=== PATIENT | female | born 1940 | race Caucasian/White ===

== ENCOUNTER 2018-08-19 06:14 | Emergency (ER) | payer OTHER ==
[2018-08-19] MEDS ORDERED: MECLIZINE HCL 12.5 MG TAB ONE (07:03)
--- NOTE | 2018-08-19 07:10 | RAD REPORT ---
EXAM DESCRIPTION: CT - Head Brain Wo Cont - 08/19/2018 7:03 am CLINICAL HISTORY: Headache, dizziness COMPARISON: CT head October 2016 TECHNIQUE: Axial 5 mm thick images of the head were obtained without IV contrast. All CT scans are performed using dose optimization technique as appropriate and may include automated exposure control or mA/KV adjustment according to patient size. FINDINGS: No intracranial hemorrhage, mass, edema or shift of mid-line structures. No acute infarcti on changes seen. [id number] atrophy and moderate chronic ischemic changes are present. Ventricl es are in proportion to volume loss. Intracranial contents are similar to the 2017 study. Mastoid air cells and visualized portions of the paranasal sinuses are clear. No acute bony findings. IMPRESSION: Atrophy and chronic ischemic changes are present similar to 2017. No mass, edema or other acute intracranial finding.
[2018-08-19 07:49] LABS: Absolute Lymphocytes (CBC) 1.2 K/uL (0.7-4.9); Absolute Monocytes 0.4 K/uL (0.1-1.3); Absolute Neutrophil 4.8 K/uL (1.8-8.0); Basophils % 0.4 % (0-1.3); Eosinophils % 2.5 % (0-4.4); Hematocrit 41.7 % (36.0-45.0); Lymphocytes % 18.7 % (15.3-44.8); MPV 8.7 fL (7.6-11.3); Monocytes % 6.4 % (3.3-12.3); RBC Red Blood Cell Count 4.66 M/uL (3.86-4.86)
[2018-08-19 08:01] LABS: BUN Blood Urea Nitrogen 24 mg/dL (7-18); Bicarbonate 28 mmol/L (21-32); Glucose Level 86 mg/dL (74-106); Potassium 3.8 mmol/L (3.5-5.1); Sodium Level 141 mmol/L (136-145)
--- NOTE | 2018-08-19 08:37 | RAD REPORT ---
EXAM DESCRIPTION: CT - Neck Angio - 08/19/2018 8:23 am CLINICAL HISTORY: Dizziness, nausea, headache TECHNIQUE: During dynamic enhancement using nonionic IV contrast, axial 2 mm thick images of the nec k were obtained. Sagittal and axial reconstruction images were generated using maximum intensity proj ection protocol and reviewed. All CT scans are performed using dose optimization technique as appropriate and may include automated exposure control or mA/KV adjustment according to patient size. FINDINGS: No aneurysm or vascular malformation identified. No carotid or vertebral dissection. Aortic arch is 3 vessel configuration. There is significant tortuosity of the proximal portions of th e great vessels and vertebral arteries. No origin stenosis seen. Visualized portions of each subclavi an artery without focal abnormality. No stenosis, vasculitis or other significant carotid artery find ing. Arterial calcifications are present. These are most pronounced in the cavernous portion of each internal carotid artery. These are further detailed on CT angio head examination. Vertebral body height is normal. There is reversal of the usual cervical lordosis at C5 where there i s also a slight retrolisthesis of C5 relative to C4 and C6. Prominent C5-6 and C6-7 disc space narrow ing present. Prominent facet joint degenerative changes are present. Mild right foraminal stenosis at C3-4 and C4-5. Moderate right-side and advanced left-sided foraminal stenosis at C5-6 and bilateral significant stenosis at C6-7. IMPRESSION: Atherosclerotic calcifications are present but no dissection, stenosis or acute vascula r abnormality. Advanced cervical spine degenerative change with significant foraminal stenosis at C5-6 and C6-7.
[2018-08-19] MEDS ORDERED: NA CHLORIDE 0.9% 500 ML ONE (08:38)
--- NOTE | 2018-08-19 08:39 | RAD REPORT ---
EXAM DESCRIPTION: CT - Head angio - 08/19/2018 8:24 am TECHNIQUE: During dynamic enhancement using nonionic IV contrast, axial 1 millimeter thick images of the head were obtained. Sagittal and axial reconstruction images were generated using maximum intens ity projection protocol and reviewed. All CT scans are performed using dose optimization technique as appropriate and may include automated exposure control or mA/KV adjustment according to patient size. FINDINGS: No aneurysm or vascular malformation identified. Major venous sinuses are patent. No significant stenosis, named branch occlusion, vasculitis or other significant vascular finding vaibhav ntifiable. Significant calcifications are seen in the cavernous portions of each internal carotid ar aftab without significant luminal narrowing. Anterior communicating artery is present. IMPRESSION: Negative CT angio head examination for acute or significant finding.
--- NOTE | 2018-08-19 08:50 | EDPHYS ---
Physician Documentation [facility] Name: Allyn Ramsey Age: 78 yrs Sex: Female : 1940 Arrival Date: 08/19/2018 Time: 06:25 Bed 5 Private MD: RUTH Physician Gus Huang HPI: 08/19 07:02 This 78 yrs old Female presents to ER via Ambulatory with complaints of kb Dizziness, Nausea. 07:02 The patient presents with dizziness. Onset: The symptoms/episode began/occurred last kb night. Context: occurred at home, occurred while the patient was getting out of bed to urinate. just prior to the episode the patient experienced no apparent symptoms. Modifying factors: The symptoms are alleviated by nothing, the symptoms are aggravated by changing position. Associated signs and symptoms: Pertinent positives: nausea. Severity of symptoms: At their worst the symptoms were moderate in the emergency department the symptoms are unchanged. Patient's baseline: Neuro: alert and fully oriented, Motor: no deficits, Ambulation: walks without assistance, Speech: normal. The patient has not experienced similar symptoms in the past. The patient has not recently seen a physician. 07:03 Pt reports she woke up in the night to use the restroom and felt like the room was kb spinning. States it was worse when she got up and started moving. Now it is worse when she lays down. Reports she has had allergies lately so she thinks that could be the problem. Has had vertigo in the past. Historical: - Allergies: 06:43 Codeine; bb 06:43 PENICILLINS; bb 06:43 Sulfa (Sulfonamide Antibiotics); bb - Home Meds: 06:43 Altace 10 mg Oral cap 1 cap once daily [Active]; CoQ-10 oral oral [Active]; D3 bb [Active]; aspirin 81 mg Oral chew 1 tab once daily [Active]; - PMHx: 06:43 Hyperlipidemia; Hypertension; bb - PSHx: 06:43 ; Appendectomy; Tonsillectomy; right ovary removal; colon surg - ileus; hip bb surgery; - Immunization history:: Adult Immunizations up to date. - Social history:: Smoking status: Patient/guardian denies using tobacco. - Ebola Screening: : No symptoms or risks identified at this time No symptoms or risks identified at this time. ROS: 07:03 Constitutional: Negative for fever, chills, and weight loss, ENT: Negative for injury, kb pain, and discharge, Neck: Negative for injury, pain, and swelling, Cardiovascular: Negative for chest pain, palpitations, and edema, Respiratory: Negative for shortness of breath, cough, wheezing, and pleuritic chest pain, Back: Negative for injury and pain, : Negative for injury, bleeding, discharge, and swelling, MS/Extremity: Negative for injury and deformity, Skin: Negative for injury, rash, and discoloration. 07:03 Abdomen/GI: Positive for nausea, Negative for abdominal pain, vomiting, diarrhea, constipation. 07:03 Neuro: Positive for dizziness. Exam: 07:00 Constitutional: This is a well developed, well nourished patient who is awake, alert, kb and in no acute distress. Head/Face: Normocephalic, atraumatic. ENT: Nares patent. No nasal discharge, no septal abnormalities noted. Tympanic membranes are normal and external auditory canals are clear. Oropharynx with no redness, swelling, or masses, exudates, or evidence of obstruction, uvula midline. Mucous membranes moist. Neck: Trachea midline, no thyromegaly or masses palpated, and no cervical lymphadenopathy. Supple, full range of motion without nuchal rigidity, or vertebral point tenderness. No Meningismus. Chest/axilla: Normal chest wall appearance and motion. Nontender with no deformity. No lesions are appreciated. Cardiovascular: Regular rate and rhythm with a normal S1 and S2. No gallops, murmurs, or rubs. Normal PMI, no JVD. No pulse deficits. Respiratory: Lungs have equal breath sounds bilaterally, clear to auscultation and percussion. No rales, rhonchi or wheezes noted. No increased work of breathing, no retractions or nasal flaring. Abdomen/GI: Soft, non-tender, with normal bowel sounds. No distension or tympany. No guarding or rebound. No evidence of tenderness throughout. Skin: Warm, dry with normal turgor. Normal color with no rashes, no lesions, and no evidence of cellulitis. MS/ Extremity: Pulses equal, no cyanosis. Neurovascular intact. Full, normal range of motion. Neuro: Awake and alert, GCS 15, oriented to person, place, time, and situation. Cranial nerves II-XII grossly intact. Motor strength 5/5 in all extremities. Sensory grossly intact. Cerebellar exam normal. Normal gait. 07:00 ECG was reviewed by the Attending Physician. Vital Signs: 06:43 BP 176 / 88; Pulse 64; Resp 16 S; Temp 97.5(O); Pulse Ox 98% on R/A; Weight 56.25 kg bb (R); Height 5 ft. 4 in. (162.56 cm) (R); Pain 0/10; 07:49 BP 159 / 79 Supine; Pulse 57; jb1 07:49 BP 168 / 88 Sitting; Pulse 62; jb1 07:49 BP 170 / 95 Standing; Pulse 68; jb1 09:30 BP 158 / 85; Pulse 61; Resp 18; Temp 97.8; Pulse Ox 99% on R/A; Pain 0/10; ph 06:43 Body Mass Index 21.28 (56.25 kg, 162.56 cm) bb NIH Stroke Scale Scores: 07:21 NIHSS Score: 0 kb MDM: 06:39 Patient medically screened. kb 07:03 Data reviewed: vital signs, nurses notes. Data interpreted: Pulse oximetry: on room air kb is 98 %. Interpretation: normal. 08:49 Counseling: I had a detailed discussion with the patient and/or guardian regarding: the kb historical points, exam findings, and any diagnostic results supporting the discharge/admit diagnosis, lab results, radiology results, the need for outpatient follow up, a family practitioner, a neurologist, to return to the emergency department if symptoms worsen or persist or if there are any questions or concerns that arise at home. 08/19 06:46 Order name: CBC with Diff; Complete Time: 07:52 kb 08/19 06:46 Order name: Basic Metabolic Panel; Complete Time: 08:05 kb 08/19 06:45 Order name: CT Head Brain wo Cont; Complete Time: 07:12 kb 08/19 07:10 Order name: Troponin (emerg Dept Use Only); Complete Time: 08:35 kb 08/19 08:06 Order name: CT Neck Angio; Complete Time: 08:41 kb 08/19 08:49 Order name: Urine Dipstick--Ancillary (enter results); Complete Time: 09:22 em1 08/19 06:46 Order name: Orthostatics; Complete Time: 07:51 kb 08/19 06:46 Order name: EKG; Complete Time: 06:46 kb 08/19 06:46 Order name: EKG - Nurse/Tech; Complete Time: 07:05 kb 08/19 06:46 Order name: IV Start; Complete Time: 07:45 kb 08/19 06:46 Order name: Urine Dipstick-Ancillary (obtain specimen); Complete Time: 08:48 kb 08/19 08:06 Order name: CT Head Angio; Complete Time: 08:41 kb EC:00 Rate is 58 beats/min. Rhythm is regular, Sinus bradycardia. QRS [place] is Normal. DC kb interval is normal at 176 msec. QRS interval is normal at 78 msec. QT interval is normal at 426 msec. Interpreted by me. Reviewed by me. Administered Medications: 03/30 08:50 Drug: NS 0.9% 500 ml Route: IV; Rate: bolus; Site: right antecubital; ph 08/19 09:15 Follow up: Response: No adverse reaction; IV Intake: 500ml ph 08:56 Not Given (Patient Refused; Symptoms resolved): Meclizine 25 mg PO once ph Disposition: 15:01 Co-signature as Attending Physician, Gus Huang MD I agree with the assessment and ronel plan of care. Disposition: 08/19/18 08:50 Discharged to Home. Impression: Dizziness and giddiness. - Condition is Stable. - Discharge Instructions: Dizziness, [id number]. - Medication Reconciliation Form, Thank You Letter, Antibiotic Education, Prescription Opioid Use form. - Follow up: Emergency Department; When: As needed; Reason: Worsening of condition. Follow up: Private Physician; When: 2 - 3 days; Reason: Recheck today's complaints, Continuance of care, Re-evaluation by your physician. NIH Stroke Scale - NIH Stroke Score Date: 08/19/2018 Time: 07:21 Total Score = 0 1a. Level of Consciousness (LOC) - 0(Alert) 1b. Level of Consciousness (LOC) (Year \T\ Age) - 0(Both) 1c. LOC Commands (Open \T\ Closes Eyes/Accelerator Technician) - 0(Both) 2. Best Gaze (Lateral Gaze Paresis) - 0(Normal) 3. Visual Field Loss - 0(No visual loss) 4. Facial Palsy - 0(Normal) 5a. Left Arm: Motor (10-second hold) - 0(No drift) 5b. Right Arm: Motor (10-second hold) - 0(No drift) 6a. Left Leg: Motor (5-second hold - always test supine) - 0(No drift) 6b. Right Leg: Motor (5-second hold - always test supine) - 0(No drift) 7. Limb Ataxia (finger/nose \T\ heel/ragland - test with eyes open) - 0(Absent) 8. Sensory Loss (pinprick arms/legs/face) - 0(Normal) 9. Best Language: Aphasia (description/naming/reading) - 0(No aphasia) 10. Dysarthria (speech clarity - read or repeat words) - 0(Normal) 11. Extinction and Inattention (visual/tactile/auditory/spatial/personal) - 0(No abnormality) Initials: kb Signatures: Dispatcher [employer] EDMS Idalia Blake, TEAMCENTER SOLUTION ARCHITECT-C TEAMCENTER SOLUTION ARCHITECT-Ckb Gus Huang MD MD cha Ballard, Brenda, RN RN Marilu Pinto RN RN Lindsey Love cc3 Corrections: (The following items were deleted from the chart) 09:31 08:50 08/19/2018 08:50 Discharged to Home. Impression: Dizziness and giddiness. ph Condition is Stable. Forms are Medication Reconciliation Form, Thank You Letter, Antibiotic Education, Prescription Opioid Use. Follow up: Emergency Department; When: As needed; Reason: Worsening of condition. Follow up: Private Physician; When: 2 - 3 days; Reason: Recheck today's complaints, Continuance of care, Re-evaluation by your physician. kb
--- NOTE | 2018-08-19 08:50 | ER ---
Nurse's Notes [facility] Name: Allyn Ramsey Age: 78 yrs Sex: Female : 1940 Arrival Date: 08/19/2018 Time: 06:25 Bed 5 Private MD: Diagnosis: Dizziness and giddiness Presentation: 08/19 06:39 Presenting complaint: Patient states: she woke up several times throughout the night bb and was feeling dizzy the room was spinning she felt nauseous and her head hurt. She states her head is not hurting now. Transition of care: patient was not received from another setting of care. Onset of symptoms was August 19, 2018. Risk Assessment: Do you want to hurt yourself or someone else? Patient reports no desire to harm self or others. Initial Sepsis Screen: Does the patient meet any 2 criteria? No. Patient's initial sepsis screen is negative. Does the patient have a suspected source of infection? No. Patient's initial sepsis screen is negative. Care prior to arrival: None. 06:39 Method Of Arrival: Ambulatory bb 06:39 Acuity: VICKIE 3 bb Historical: - Allergies: 06:43 Codeine; bb 06:43 PENICILLINS; bb 06:43 Sulfa (Sulfonamide Antibiotics); bb - Home Meds: 06:43 Altace 10 mg Oral cap 1 cap once daily [Active]; CoQ-10 oral oral [Active]; D3 bb [Active]; aspirin 81 mg Oral chew 1 tab once daily [Active]; - PMHx: 06:43 Hyperlipidemia; Hypertension; bb - PSHx: 06:43 ; Appendectomy; Tonsillectomy; right ovary removal; colon surg - ileus; hip bb surgery; - Immunization history:: Adult Immunizations up to date. - Social history:: Smoking status: Patient/guardian denies using tobacco. - Ebola Screening: : No symptoms or risks identified at this time No symptoms or risks identified at this time. Screenin:41 Abuse screen: Denies threats or abuse. Denies injuries from another. Nutritional cc3 screening: No deficits noted. Tuberculosis screening: No symptoms or risk factors identified. Fall Risk Ambulatory Aid- None/Bed Rest/Nurse Assist (0 pts). Gait- Normal/Bed Rest/Wheelchair (0 pts) Mental Status- Oriented to own ability (0 pts). Assessment: 06:45 General: Appears in no apparent distress. uncomfortable, Behavior is calm, cooperative, cc3 appropriate for age. Pain: Denies pain. Neuro: Level of Consciousness is awake, alert, obeys commands, Oriented to person, place, time, situation, Appropriate for age. Cardiovascular: Patient's skin is warm and dry. Respiratory: Airway is patent Respiratory effort is even, unlabored, Respiratory pattern is regular, symmetrical. GI: Abdomen is round non-distended. : No signs and/or symptoms were reported regarding the genitourinary system. EENT: Reports dizziness and nausea. Derm: No signs and/or symptoms reported regarding the dermatologic system. Musculoskeletal: Circulation, motion, and sensation intact. Range of motion: intact in all extremities. 06:50 Reassessment: Patient doesn't like to take the Meclizine oral right now because she's cc3 more concerned with her high blood pressure reading, etc. MODEL MAKER APPRENTICE Idalia informed. 06:56 Reassessment: Patient taken to CT scan department by the motion study technician by mya. cc3 07:35 Reassessment: Patient appears in no apparent distress at this time. Patient and/or ph family updated on plan of care and expected duration. Pain level reassessed. Patient is alert, oriented x 3, equal unlabored respirations, skin warm/dry/pink. Pt resting quietly, blood drawn and sent to lab, pt refusing PO Meclizine at this time, states, " I'm worried it will interact w/ my BP medication because I take an EVELIA inhibitor. I actually feel much better any ways and I don't think I need it." Pt requesting to take home BP medication, ERP notified of pt request. 08:57 Reassessment: Patient appears in no apparent distress at this time. Patient and/or ph family updated on plan of care and expected duration. Pain level reassessed. Patient is alert, oriented x 3, equal unlabored respirations, skin warm/dry/pink. Pt continues to deny dizziness or nausea, taken to restroom via wheelchair, urine sample obtained, no sign of infection per POC testing, d/c pending completion of IV fluids. 09:30 Reassessment: Patient appears in no apparent distress at this time. Patient and/or ph family updated on plan of care and expected duration. Pain level reassessed. Patient is alert, oriented x 3, equal unlabored respirations, skin warm/dry/pink. Pt d/c home w/ daughter. Vital Signs: 06:43 BP 176 / 88; Pulse 64; Resp 16 S; Temp 97.5(O); Pulse Ox 98% on R/A; Weight 56.25 kg bb (R); Height 5 ft. 4 in. (162.56 cm) (R); Pain 0/10; 07:49 BP 159 / 79 Supine; Pulse 57; jb1 07:49 BP 168 / 88 Sitting; Pulse 62; jb1 07:49 BP 170 / 95 Standing; Pulse 68; jb1 09:30 BP 158 / 85; Pulse 61; Resp 18; Temp 97.8; Pulse Ox 99% on R/A; Pain 0/10; ph 06:43 Body Mass Index 21.28 (56.25 kg, 162.56 cm) bb NIH Stroke Scale Scores: 07:21 NIHSS Score: 0 kb ED Course: 06:25 Patient arrived in ED. es 06:39 Idalia Blake FNP-C is PHCP. kb 06:39 Gus Huang MD is Attending Physician. kb 06:41 Triage completed. bb 06:43 Patient has correct armband on for positive identification. Bed in low position. Call cc3 light in reach. Side rails up X2. surveillance system monitor on. Pulse ox on. NIBP on. 06:43 Arm band placed on Patient placed in an exam room, on a stretcher, on pulse oximetry. bb Family accompanied patient. 07:00 Report given to VICTORINO Michel and VICTORINO Mathew. cc3 07:03 CT Head Brain wo Cont In Process Unspecified. EDMS 07:03 CT completed. Patient tolerated procedure well. Patient moved to CT via stretcher. Patient moved back from CT. 07:18 Marilu Huffman RN is Primary Nurse. ph 07:30 Initial lab(s) drawn, by me, sent to lab. Inserted saline lock: 20 gauge in right ph antecubital area, using aseptic technique. Blood collected. 08:[address] via stretcher. sj 08:23 CT Neck Angio In Process Unspecified. EDMS 08:23 CT Head Angio In Process Unspecified. EDMS 08:56 No provider procedures requiring assistance completed. ph 09:30 IV discontinued, intact, bleeding controlled, No redness/swelling at site. Pressure ph dressing applied. Administered Medications: 03/30 08:50 Drug: NS 0.9% 500 ml Route: IV; Rate: bolus; Site: right antecubital; ph 08/19 09:15 Follow up: Response: No adverse reaction; IV Intake: 500ml ph 08:56 Not Given (Patient Refused; Symptoms resolved): Meclizine 25 mg PO once ph Intake: 09:15 IV: 500ml; Total: 500ml. ph Outcome: 08:50 Discharge ordered by MD. mckeon 09:30 Discharged to home ambulatory, with family. ph 09:30 Condition: improved 09:30 Discharge instructions given to patient, Instructed on discharge instructions, follow up and referral plans. Demonstrated understanding of instructions, follow-up care. :31 Patient left the ED. ph NIH Stroke Scale - NIH Stroke Score Date: 08/19/2018 Time: 07:21 Total Score = 0 1a. Level of Consciousness (LOC) - 0(Alert) 1b. Level of Consciousness (LOC) (Year \\T\\ Age) - 0(Both) 1c. LOC Commands (Open \\T\\ Closes Eyes/Public Health Specialist) - 0(Both) 2. Best Gaze (Lateral Gaze Paresis) - 0(Normal) 3. Visual Field Loss - 0(No visual loss) 4. Facial Palsy - 0(Normal) 5a. Left Arm: Motor (10-second hold) - 0(No drift) 5b. Right Arm: Motor (10-second hold) - 0(No drift) 6a. Left Leg: Motor (5-second hold - always test supine) - 0(No drift) 6b. Right Leg: Motor (5-second hold - always test supine) - 0(No drift) 7. Limb Ataxia (finger/nose \\T\\ heel/ragland - test with eyes open) - 0(Absent) 8. Sensory Loss (pinprick arms/legs/face) - 0(Normal) 9. Best Language: Aphasia (description/naming/reading) - 0(No aphasia) 10. Dysarthria (speech clarity - read or repeat words) - 0(Normal) 11. Extinction and Inattention (visual/tactile/auditory/spatial/personal) - 0(No abnormality) Initials: mike Signatures: Dispatcher [employer] EDBrooks Ortiz1 Idalia Blake, GREY GOODS MARKER-C GREY GOODS MARKER-Ckb Samina Hagan, Genesis Huizar Brenda, RN RN Marilu Pinto RN RN alex Keller, Lindsey cc3 Corrections: (The following items were deleted from the chart) 07:08 06:56 Reassessment: Patient taken to CT scan department by the motion study technician. cc3 cc3
[2018-08-19 09:15] LABS: Urine Blood NEGATIVE (NEG); Urine Glucose NEGATIVE (NEG); Urine Protein NEGATIVE (NEG); Urine Specific Gravity 1.015 (1.005-1.030)
--- NOTE | 2018-08-19 10:26 | EKG ---
Test Date: 2018-08-19 Test Time: 06:56:42 Percussion Welding Machine Operator: FIDEL MEASUREMENT RESULTS: Intervals: Rate: 58 MN: 176 QRSD: 78 QT: 426 QTc: 418 [place]: P: 43 MN: 176 QRS: 5 T: 39 INTERPRETIVE STATEMENTS: Sinus bradycardia Anterior infarct, age undetermined Abnormal ECG Compared to ECG 09/17/2013 16:15:14 Myocardial infarct finding now present Sinus tachycardia no longer present ST (T wave) deviation no longer present Electronically Signed On 08-19-18 10:25:03 CDT by Miller Carr
[2018-08-19 14:51] VITALS: BP 158/85; TEMP 97.8; O2SAT 99
== END 2018-08-19 09:31 | disposition home or self-care (01) ==
LOC: ER 06:14
DX: R42 Dizziness and giddiness (principal); I10 Essential (primary) hypertension; E78.5 Hyperlipidemia, unspecified; Z79.82 Long term (current) use of aspirin; Z88.0 Allergy status to penicillin; Z88.2 Allergy status to sulfonamides; Z88.5 Allergy status to narcotic agent
CPT/HCPCS: 93005; 85025; 80048; 36415; 81003; 84484; 70450; 70496; 70498; Q9967; 99285

== ENCOUNTER 2021-06-04 15:36 | Emergency (ER) | payer OTHER ==
[2021-06-04 18:06] LABS: Protime INR 1.14
[2021-06-04 18:07] LABS: Absolute Lymphocytes (CBC) 1.2 K/uL (0.7-4.9); Hematocrit 38.4 % (36.0-45.0); Lymphocytes % 23.4 % (15.3-44.8); MPV 7.4 fL (7.6-11.3); RBC Red Blood Cell Count 4.37 M/uL (3.86-4.86)
[2021-06-04 18:22] LABS: ALT/SGPT 16 U/L (12-78); AST/SGOT 18 U/L (15-37); Albumin 3.1 g/dL (3.4-5.0); Alkaline Phosphatase 71 U/L (45-117); BUN Blood Urea Nitrogen 22 mg/dL (7-18); Bicarbonate 29 mmol/L (21-32); Bilirubin Direct 0.2 mg/dL (0-0.2); Bilirubin Total 0.9 mg/dL (0.2-1.0); Glucose Level 93 mg/dL (74-106); Magnesium 2.2 mg/dL (1.8-2.4); NT PRO-BNP 315 pg/mL (<450); Potassium 4.5 mmol/L (3.5-5.1); Protein, Total 6.6 g/dL (6.4-8.2); Sodium Level 139 mmol/L (136-145)
--- NOTE | 2021-06-04 18:41 | EDPHYS ---
Physician Documentation [facility] Name: Allyn Ramsey Age: 80 yrs Sex: Female : 1940 Arrival Date: 06/04/2021 Time: 15:47 Bed 8 Private MD: ED Physician Ryan Ma HPI: 06/04 17:47 This 80 yrs old Female presents to ER via EMS with complaints of Leg Swelling. sp3 17:47 80-year-old female with history of hyperlipidemia and hypertension presents with sp3 bilateral lower extremity swelling for approximately 10 days. Patient states that she went to get a manicure and pedicure thinks that it may have caused an infection in the right toe. However bilateral feet are not affected and have no erythema per patient swelling is mainly between the knee and ankles bilaterally. Patient denies chest pain, shortness of breath, prior congestive heart failure, prior kidney pathology, changes in diet, travel history, fever, infection, headache, changes in urine output, any other symptoms as a part of ROS at this time. Patient has no pain in the lower extremities is mainly concerned about the edema/swelling. Patient also states that she has a mild shininess to her skin bilaterally. No history of thyroid problems or myxedema in the past.. Historical: - Allergies: 15:56 Codeine; ss 15:56 PENICILLINS; ss 15:56 Sulfa (Sulfonamide Antibiotics); ss - Home Meds: 18:07 CoQ-10 Oral [Active]; ramipril Oral [Active]; ag7 - PMHx: 15:56 Hyperlipidemia; Hypertension; ss - PSHx: 18:07 RIGHT HIP FRACTURE; section; AVASCULAR NECROSIS HIP; ag7 - Immunization history:: Adult Immunizations up to date, Client reports receiving the 2nd dose of the Covid vaccine. - Social history:: Smoking status: Patient denies any tobacco usage or history of. ROS: 17:48 Constitutional: Negative for fever, chills, and weight loss, Eyes: Negative for injury, sp3 pain, redness, and discharge, ENT: Negative for injury, pain, and discharge, Neck: Negative for injury, pain, and swelling, Cardiovascular: Negative for chest pain, palpitations, and edema, Respiratory: Negative for shortness of breath, cough, wheezing, and pleuritic chest pain, Abdomen/GI: Negative for abdominal pain, nausea, vomiting, diarrhea, and constipation, Back: Negative for injury and pain, Skin: Negative for injury, rash, and discoloration, Neuro: Negative for headache, weakness, numbness, tingling, and seizure, Psych: Negative for depression, anxiety, suicide ideation, homicidal ideation, and hallucinations, Allergy/Immunology: Negative for hives, rash, and allergies, Endocrine: Negative for neck swelling, polydipsia, polyuria, polyphagia, and marked weight changes. 17:48 All other systems are negative. Exam: 17:49 Constitutional: This is a well developed, well nourished patient who is awake, alert, sp3 and in no acute distress. Head/Face: Normocephalic, atraumatic. Neck: Trachea midline, no thyromegaly or masses palpated, and no cervical lymphadenopathy. Supple, full range of motion without nuchal rigidity, or vertebral point tenderness. No Meningismus. Chest/axilla: Normal chest wall appearance and motion. Nontender with no deformity. No lesions are appreciated. Cardiovascular: Regular rate and rhythm with a normal S1 and S2. No gallops, murmurs, or rubs. Normal PMI, no JVD. No pulse deficits. Respiratory: Lungs have equal breath sounds bilaterally, clear to auscultation and percussion. No rales, rhonchi or wheezes noted. No increased work of breathing, no retractions or nasal flaring. Abdomen/GI: Soft, non-tender, with normal bowel sounds. No distension or tympany. No guarding or rebound. No evidence of tenderness throughout. Skin: Warm, dry with normal turgor. Normal color with no rashes, no lesions, and no evidence of cellulitis. Neuro: Awake and alert, GCS 15, oriented to person, place, time, and situation. Cranial nerves II-XII grossly intact. Motor strength 5/5 in all extremities. Sensory grossly intact. Cerebellar exam normal. Normal gait. Psych: Awake, alert, with orientation to person, place and time. Behavior, mood, and affect are within normal limits. 17:49 Musculoskeletal/extremity: Bilateral lower extremity swelling appreciated with 1+ pitting edema mainly in the leg but sparing the feet. No erythema is noted and there is no evidence of infection around any of her toenails. Dorsalis pedis pulses are present bilaterally. No evidence of trauma noted.. 17:57 ECG was reviewed by the Attending Physician. EKG demonstrates normal sinus rhythm at 73 sp3 bpm with normal intervals, normal axis, normal QRS, nonspecific ST/T changes without evidence of ischemia. Vital Signs: 18:02 BP 167 / 78; Pulse 71 MON; Resp 16 S; Temp 98.1; Pulse Ox 99% on R/A; Pain 10/10; ag7 19:20 BP 157 / 88; Pulse 79; Resp 18 S; Pulse Ox 100% on R/A; Pain 5/10; ag7 MDM: 17:33 Patient medically screened. sp3 17:49 Data reviewed: vital signs, nurses notes. ED course: 80-year-old female with bilateral sp3 lower extremity edema for 10 days. Will assess for DVT, renal pathology, CHF, and metabolic derangement. If work-up is negative will discharge patient home to PCP follow-up for continued outpatient management and/or treatment.. 18:29 ED course: Laboratory values reviewed and demonstrate no significant abnormality. Chest sp3 x-ray is clear. If venous Dopplers are negative, will discharge patient home after 20 mg of Lasix IV.. 18:37 ED course: Discussed with carpet technician who states that there were no DVTs sp3 bilaterally including popliteal.. 03 17:36 Order name: Basic Metabolic Panel sp3 06/04 17:36 Order name: CBC with Diff sp3 06/04 17:36 Order name: LFT's sp3 06/04 17:36 Order name: Magnesium sp3 06/04 17:36 Order name: NT PRO-BNP; Complete Time: 18:28 sp3 06/04 17:36 Order name: PT-INR; Complete Time: 18:28 sp3 06/04 17:36 Order name: Troponin HS; Complete Time: 18:28 sp3 06/04 17:36 Order name: XRAY Chest (1 view) sp3 06/04 17:36 Order name: US Extremity Venous W Compression Jose L sp3 06/04 17:36 Order name: Basic Metabolic Panel; Complete Time: 18:28 EDMS 06/04 17:36 Order name: CBC with Automated Diff; Complete Time: 18:28 EDMS 06/04 17:36 Order name: Liver (Hepatic) Function; Complete Time: 18:28 EDMS 06/04 17:37 Order name: Magnesium; Complete Time: 18:28 EDMS 06/04 17:36 Order name: EKG; Complete Time: 17:37 sp3 06/04 17:36 Order name: Cardiac monitoring; Complete Time: 17:56 sp3 06/04 17:36 Order name: EKG - Nurse/Tech; Complete Time: 17:56 sp3 06/04 17:36 Order name: IV Saline Lock; Complete Time: 18:04 sp3 06/04 17:36 Order name: Labs collected and sent; Complete Time: 18:04 sp3 06/04 17:36 Order name: O2 Per Protocol; Complete Time: 17:37 sp3 06/04 17:36 Order name: O2 Sat Monitoring; Complete Time: 17:37 sp3 Administered Medications: 18:52 Drug: Lasix (furosemide) 20 mg Route: IVP; Infused Over: 2 mins; Site: left forearm; ag7 Disposition Summary: 06/04/21 18:40 Discharge Ordered Location: Home sp3 Condition: Stable sp3 Diagnosis - Peripheral edema sp3 Followup: sp3 - With: Private Physician - When: Upon discharge from the Emergency Department - Reason: Re-evaluation by your physician Discharge Instructions: - Discharge Summary Sheet sp3 - Peripheral Edema sp3 Forms: - Medication Reconciliation Form sp3 - Thank You Letter sp3 - Antibiotic Education sp3 - Prescription Opioid Use sp3 Signatures: Dispatcher [employer] Chela Stockton RN RN Kenyatta Lockowod RN RN ll1 Ryan Ma MD MD sp3 Yary Barajas RN RN ag7
--- NOTE | 2021-06-04 18:41 | ER ---
Nurse's Notes [facility] Name: Allyn Ramsey Age: 80 yrs Sex: Female : 1940 Arrival Date: 06/04/2021 Time: 15:47 Bed 8 Private MD: Diagnosis: Peripheral edema Presentation: 06/04 15:55 Chief complaint: Patient states: bilateral leg swelling x 1 week. Coronavirus screen: ss Client denies travel out of the [place] in the last 14 days. Ebola Screen: Patient denies exposure to infectious person. Patient denies travel to an Ebola-affected area in the 21 days before illness onset. 15:55 Method Of Arrival: EMS: [facility] ss 15:55 Acuity: VICKIE 3 ss 17:36 Initial Sepsis Screen: Does the patient meet any 2 criteria? No. Patient's initial ll1 sepsis screen is negative. Does the patient have a suspected source of infection? No. Patient's initial sepsis screen is negative. Risk Assessment: Do you want to hurt yourself or someone else? Patient reports no desire to harm self or others. Onset of symptoms was May 29, 2021. Historical: - Allergies: 15:56 Codeine; ss 15:56 PENICILLINS; ss 15:56 Sulfa (Sulfonamide Antibiotics); ss - Home Meds: 18:07 CoQ-10 Oral [Active]; ramipril Oral [Active]; ag7 - PMHx: 15:56 Hyperlipidemia; Hypertension; ss - PSHx: 18:07 RIGHT HIP FRACTURE; section; AVASCULAR NECROSIS HIP; ag7 - Immunization history:: Adult Immunizations up to date, Client reports receiving the 2nd dose of the Covid vaccine. - Social history:: Smoking status: Patient denies any tobacco usage or history of. Screenin:35 Abuse screen: Denies threats or abuse. Nutritional screening: No deficits noted. ll1 Tuberculosis screening: No symptoms or risk factors identified. Fall Risk Fall in past 12 months (25 points). Secondary diagnosis (15 points) impaired mobility, IV access (20 points). Ambulatory Aid- Crutches/Cane/Walker (15 pts). Gait- Weak (10 pts.). Total Rodriguez Fall Scale indicates High Risk Score (45 or more points). Fall prevention measures have been instituted. Side Rails Up X 2 Placed Close to Nursing Station Frequent Obs/Assessments Occuring Family Present and informed to notify staff if the need to leave the bedside As available patient and family educated on Fall Prevention Program and Strategies. Assessment: 17:25 General: Appears uncomfortable, Behavior is calm, cooperative, appropriate for age. ss Pain: Complains of pain in legs Quality of pain is described as aching. Neuro: No deficits noted. Cardiovascular: No deficits noted. Cardiovascular: Edema is 3+ to left midcalf, left ankle, left foot, left toes, right midcalf, right ankle, right foot and right toes pitting to left midcalf, left ankle, left foot, left toes, right midcalf, right ankle, right foot and right toes. Respiratory: No deficits noted. Derm: Reports redness,swelling 3+ BLE. Small blisters noted RLE. Musculoskeletal: Circulation, motion, and sensation intact. Capillary refill < 3 seconds, Swelling present in right leg and left leg Reports swelling BLE. 18:01 Reassessment: No changes from previously documented assessment. Patient and/or family ag7 updated on plan of care and expected duration. Pain level reassessed. Vital Signs: 18:02 BP 167 / 78; Pulse 71 MON; Resp 16 S; Temp 98.1; Pulse Ox 99% on R/A; Pain 10/10; ag7 19:20 BP 157 / 88; Pulse 79; Resp 18 S; Pulse Ox 100% on R/A; Pain 5/10; ag7 ED Course: 15:47 Patient arrived in ED. ss 15:56 Triage completed. ss 17:11 Ryan Ma MD is Attending Physician. sp3 17:24 Arm band placed on Patient placed in an exam room, on a stretcher. ss 17:36 Patient has correct armband on for positive identification. Bed in low position. Call ll1 light in reach. Side rails up X 1. Pulse ox on. NIBP on. 17:56 EKG done, by ED staff, reviewed by Ryan Ma MD. ll1 17:59 Yary Barajas, RN is Primary Nurse. ag7 18:05 Inserted saline lock: 22 gauge in left forearm, using aseptic technique. Flushed left ag7 forearm saline lock. 18:19 XRAY Chest (1 view) In Process Unspecified. EDMS 18:40 US Extremity Venous W Compression Jose L In Process Unspecified. EDMS 19:21 No provider procedures requiring assistance completed. ag7 19:24 IV discontinued, intact, bleeding controlled, No redness/swelling at site. Pressure ag7 dressing applied. Administered Medications: 18:52 Drug: Lasix (furosemide) 20 mg Route: IVP; Infused Over: 2 mins; Site: left forearm; ag7 Outcome: 18:40 Discharge ordered by . rafa 19:21 Discharged to home via wheelchair. ag7 19:21 Condition: stable 19:21 Discharge instructions given to patient, Instructed on discharge instructions, follow up and referral plans. Demonstrated understanding of instructions, follow-up care. 19:25 Patient left the ED. ag7 Signatures: Dispatcher [employer] Chela Stockton RN RN Kenyatta Lockwood RN RN ll1 Ryan Ma MD MD sp3 Yary Barajas RN RN ag7
[2021-06-04] MEDS ORDERED: FUROSEMIDE 20 MG/ 2ML VIAL ONE (18:46)
--- NOTE | 2021-06-04 18:48 | RAD REPORT ---
EXAM DESCRIPTION: US - Extrem Venous W Compress Jose L - 06/04/2021 6:40 pm CLINICAL HISTORY: SWELLING Bilateral leg edema and swelling. COMPARISON: <Comparisons> TECHNIQUE: Real-time sonographic interrogation of the left and right lower extremity deep venous sys tems was performed. FINDINGS: Normal compressibility, flow augmentation, phasic flow and spontaneous flow is identified in both the left and right lower extremity deep venous systems. IMPRESSION: No sonographic evidence of left or right lower extremity deep venous thrombosis.
--- NOTE | 2021-06-04 19:16 | RAD REPORT ---
EXAM DESCRIPTION: RAD - Chest Single View - 06/04/2021 6:19 pm CLINICAL HISTORY: peripheral edema Chest pain. COMPARISON: Chest Pa And Lat (2 Views) dated 12/02/2018; CHEST SINGLE VIEW dated 09/16/2013 FINDINGS: Portable technique limits examination quality. The lungs are emphysematous but grossly clear. The heart is normal in size. No displaced fractures.To rtuous thoracic aorta. IMPRESSION: Mild COPD.
[2021-06-04 19:39] VITALS: TEMP 98.1
[2021-06-04 19:41] VITALS: BP 157/88; O2SAT 100
--- NOTE | 2021-06-05 12:50 | EKG ---
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
== END 2021-06-04 19:25 | disposition home or self-care (01) ==
LOC: ER 15:36
DX: R60.9 Edema, unspecified (principal); I10 Essential (primary) hypertension; E78.5 Hyperlipidemia, unspecified; Z88.0 Allergy status to penicillin; Z88.2 Allergy status to sulfonamides; Z88.5 Allergy status to narcotic agent
CPT/HCPCS: 93005; 85025; 80048; 36415; 83735; 85610; 80076; 84484; 83880; 71045; 93970; 96374; 99284; J1940

== ENCOUNTER 2022-06-18 13:07 | Inpatient (IN) | payer OTHER ==
--- OUTSIDE RECORDS SUMMARY | 2022-06-18 13:10 | XMS REPORT | Continuity of Care Document ---
:1940 Author Organization [facility] t Address [address] [place] [id number] Care Team Providers Name Role Phone Leroy Childs Attending Clinician Problems This patient has no known problems. Allergies, Adverse Reactions, Alerts This patient has no known allergies or adverse reactions. Medications This patient has no known medications. Procedures This patient has no known procedures. Encounters Start End Encounter Admission Attending Care Care Encounter Source Date/Time Date/Time Type Type Clinicians Facility Department ID 2021-07-[address] [facility] [id number] Common 08:55:05 [facility] 2021-07-16 Outpatient [facility] [id number] Common 14:46:03 [facility] 2022-02-27 2022-02-27 Ambulatory [facility] [id number] 16:15:00 16:15:00 Pre-Reg Neurology 00 l [place] 2022-02-27 2022-02-27 Outpatient [facility] [id number] 10:15:00 10:15:00 00 lizette Jorgensen 2022-02-27 2022-02-27 Outpatient VINCENZO Childs 538 [id number] 10:15:00 10:15:00 Leroy Delgado Results This patient has no known results.
--- NOTE | 2022-06-18 14:09 | RAD REPORT ---
EXAM DESCRIPTION: US - Extrem Venous W Compress Jose L - 06/18/2022 1:50 pm CLINICAL HISTORY: SWELLING Bilateral leg edema and swelling. COMPARISON: Extrem Venous W Compress Jose L dated 06/04/2021 TECHNIQUE: Real-time sonographic interrogation of the left and right lower extremity deep venous sys tems was performed. FINDINGS: Normal compressibility, flow augmentation, phasic flow and spontaneous flow is identified in both the left and right lower extremity deep venous systems. IMPRESSION: No sonographic evidence of left or right lower extremity deep venous thrombosis.
--- NOTE | 2022-06-18 14:10 | RAD REPORT ---
EXAM DESCRIPTION: RAD - Chest Single View - 06/18/2022 2:04 pm CLINICAL HISTORY: COUGH Chest pain. COMPARISON: Chest Single View dated 06/04/2021; Chest Pa And Lat (2 Views) dated 12/02/2018; CHEST SINGL E VIEW dated 09/16/2013 FINDINGS: Portable technique limits examination quality. The lungs are emphysematous but grossly clear. The heart is normal in size. No displaced fractures. IMPRESSION: COPD.
[2022-06-18 15:00] LABS: Absolute Lymphocytes (CBC) 1.2 K/uL (0.7-4.9); Hematocrit 38.6 % (36.0-45.0); Lymphocytes % 19.2 % (15.3-44.8); MCV 89.5 fL (80-100); MPV 7.1 fL (7.6-11.3); RBC Red Blood Cell Count 4.31 M/uL (3.86-4.86)
[2022-06-18 15:03] LABS: Protime INR 1.12
[2022-06-18 15:28] LABS: Potassium 3.8 mEq/L (3.5-5.1)
[2022-06-18 15:29] LABS: Albumin 3.5 g/dL (3.4-5.0); Bilirubin Direct 0.3 mg/dL (0-0.2); Bilirubin Total 1.2 mg/dL (0.2-1.0); Magnesium 2.1; Protein, Total 6.8 g/dL (6.4-8.2); Troponin High Sensitivity 8.8 (<58.9)
[2022-06-18 15:43] LABS: Specific Gravity 1.014 (1.005-1.030); Urine Bacteria None Seen /HPF (<20); Urine Bilirubin NEGATIVE (Negative); Urine Blood Trace (Negative); Urine Clarity Turbid (Clear); Urine Color Light-Yellow (Yellow); Urine Crystals Unidentified Few /HPF (None Seen); Urine Glucose NEGATIVE (Negative); Urine Mucus Slight /HPF (None Seen); Urine Protein NEGATIVE (Negative); Urine RBC <5 /HPF (None Seen); Urine Urobilinogen Normal (Normal); Urine pH 7.5 (5.0-7.0)
[2022-06-18] MEDS ORDERED: FUROSEMIDE 20 MG/ 2ML VIAL ONE (16:45)
--- NOTE | 2022-06-18 17:09 | ER ---
Nurse's Notes [facility] Name: Allyn Ramsey Age: 81 yrs Sex: Female : 1940 Arrival Date: 06/18/2022 Time: 13:10 Bed 15 Private MD: Diagnosis: Cellulitis and acute lymphangitis of other parts of limb-BILATERAL LOWER EXTREMITIES;Edema, unspecified;Weakness Presentation: 06/18 15:39 Chief complaint: Patient's son or daughter states: lexy leg swelling, is supposed to iw take her lasix daily but she hasn;t been taking it because it is difficult for her to get around. Coronavirus screen: At this time, the client does not indicate any symptoms associated with coronavirus-19. Ebola Screen: Patient negative for fever greater than or equal to 101.5 degrees Fahrenheit, and additional compatible Ebola Virus Disease symptoms Patient denies exposure to infectious person. Patient denies travel to an Ebola-affected area in the 21 days before illness onset. No symptoms or risks identified at this time. Initial Sepsis Screen: Does the patient meet any 2 criteria? No. Patient's initial sepsis screen is negative. Does the patient have a suspected source of infection? No. Patient's initial sepsis screen is negative. Risk Assessment: Do you want to hurt yourself or someone else? Patient reports no desire to harm self or others. Onset of symptoms was June 18, 2022. 15:39 Method Of Arrival: Wheelchair iw 15:39 Acuity: VICKIE 3 iw Historical: - Allergies: 15:40 Codeine; iw 15:40 PENICILLINS; iw 15:40 Sulfa (Sulfonamide Antibiotics); iw - PMHx: 15:40 Hyperlipidemia; Hypertension; iw - PSHx: 15:40 AVASCULAR NECROSIS HIP; section; RIGHT HIP FRACTURE; iw - Immunization history:: Adult Immunizations unknown. - Family history:: not pertinent. - Social history:: Smoking status: Patient denies any tobacco usage or history of. Screenin:02 [facility] ED Fall Risk Assessment (Adult) History of falling in the last 3 months, kr3 including since admission No falls in past 3 months (0 pts) Confusion or Disorientation No (0 pts) Intoxicated or Sedated No (0 pts) Impaired Gait No (0 pts) Mobility Assist Device Used No (0 pt) Altered Elimination No (0 pt) Score/Fall Risk Level 0 - 2 = Low Risk Oriented to surroundings, Maintained a safe environment, Educated pt \T\ family on fall prevention, incl call for assistance when getting out of bed, Assessed \T\ reinforced patient's understanding of fall precautions, Hourly rounding (assess needs \T\ fall precautionary measures) done. Abuse screen: Denies threats or abuse. Nutritional screening: No deficits noted. Tuberculosis screening: No symptoms or risk factors identified. Assessment: 13:56 Reassessment: US called and stated pt done and will be taken to Xray next. vg1 16:15 General: Appears in no apparent distress. uncomfortable, Behavior is calm, cooperative. kr3 Neuro: Level of Consciousness is awake, alert, obeys commands, Oriented to person, place, time. Cardiovascular: Patient's skin is warm and dry. Respiratory: Airway is patent Respiratory effort is even, unlabored, Respiratory pattern is regular, symmetrical. GI: No signs and/or symptoms were reported involving the gastrointestinal system. : No signs and/or symptoms were reported regarding the genitourinary system. EENT: No signs and/or symptoms were reported regarding the EENT system. Derm: Skin is fragile. Musculoskeletal: Swelling present in right leg, lateral aspect of left knee, lateral aspect of left calf, left lateral ankle, lateral aspect of left foot, posterior aspect of left knee, left calf, left Achilles, left heel, medial aspect of left knee, medial aspect of left calf, left medial ankle, medial aspect of left foot, left knee, left ragland, anterior aspect of left ankle and dorsum of left foot. 17:15 Reassessment: Patient appears in no apparent distress at this time. Patient and/or kr3 family updated on plan of care and expected duration. Pain level reassessed. Patient is alert, oriented x 3, equal unlabored respirations, skin warm/dry/pink. 18:15 Reassessment: Patient appears in no apparent distress at this time. Patient and/or kr3 family updated on plan of care and expected duration. Pain level reassessed. 19:15 Reassessment: Patient appears in no apparent distress at this time. Patient and/or kr3 family updated on plan of care and expected duration. Pain level reassessed. 20:15 Reassessment: Patient appears in no apparent distress at this time. Patient and/or kr3 family updated on plan of care and expected duration. Pain level reassessed. 20:52 Reassessment: Daughter Nelda Ricci [phone]. kr3 Vital Signs: 15:39 BP 138 / 87; Pulse 103; Resp 16; Pulse Ox 100% on R/A; iw 16:00 BP 132 / 82; Pulse 84; Resp 17; Pulse Ox 100% on R/A; kr3 17:00 BP 154 / 82; Pulse 76; Resp 18; Pulse Ox 98% on R/A; kr3 18:00 BP 147 / 83; Pulse 72; Resp 17; Pulse Ox 98% on R/A; kr3 19:00 BP 155 / 89; Pulse 75; Resp 17; Pulse Ox 100% on R/A; kr3 ED Course: 13:10 Patient arrived in ED. mr 13:14 Gsu Huang MD is Attending Physician. ronel 13:46 US Extremity Venous W Compression Lexy In Process Unspecified. EDMS 14:06 XRAY Chest (1 view) In Process Unspecified. EDMS 15:40 Triage completed. iw 15:40 Arm band placed on. iw 15:50 Bed in low position. Call light in reach. Side rails up X 1. kr3 16:36 Ilana Tesfaye, VICTORINO is Primary Nurse. kr3 17:08 Noemi Prasad MD is Hospitalizing Provider. ronel 17:29 Pelvis XRAY In Process Unspecified. EDMS 18:00 Inserted saline lock: 20 gauge in right antecubital area, using aseptic technique. zm Blood collected. 18:00 Blood Culture Adult (2) Sent. zm 21:02 No provider procedures requiring assistance completed. Patient admitted, IV remains in kr3 place. Administered Medications: 17:12 Drug: Furosemide IVP 20 mg Route: IVP; Site: left antecubital; kr3 19:34 Follow up: Response: No adverse reaction kr3 18:51 Drug: ceFAZolin IVPB 1 grams Route: IVPB; Site: right antecubital; kr3 19:35 Follow up: Response: No adverse reaction; IV Status: Completed infusion; IV Intake: kr3 100ml Medication: 21:03 VIS not applicable for this client. kr3 Intake: 19:35 IV: 100ml; Total: 100ml. kr3 Outcome: 17:09 Decision to Hospitalize by Provider. ronel 21:02 Admitted to Med/surg kr3 21:02 Condition: stable 21:02 Instructed on the need for admit. 21:04 Patient left the ED. kr3 Signatures: Dispatcher [employer] EDGus Wilkerson MD MD cha Rivera, Mary mr Williams, Irene, Bibi Le RN, RN RN [email or web address] Thuy Asencio Kelley, RN RN kr3
--- NOTE | 2022-06-18 17:09 | EDPHYS ---
Physician Documentation [facility] Name: Allyn Ramsey Age: 81 yrs Sex: Female : 1940 Arrival Date: 06/18/2022 Time: 13:10 Bed 15 Private MD: ED Physician Gus Huang HPI: 06/18 16:58 This 81 yrs old Female presents to ER via Wheelchair with complaints of Leg ronel Swelling. 16:58 The patient presents with decreased range of motion, pain, swelling, tenderness. The ronel complaints affect the right leg and left leg. Context: The problem was sustained at an unknown site. Onset: The symptoms/episode began/occurred 5 day(s) ago. Modifying factors: The symptoms are alleviated by nothing. elevating leg, remaining still, the symptoms are aggravated by movement, weight bearing. Associated signs and symptoms: Pertinent positives: weakness. POORLY COMPLIANT. Treatment prior to arrival includes: no previous treatment. Onset: The symptoms/episode began/occurred 1 week(s) ago. Severity of symptoms: At their worst the symptoms were mild moderate in the emergency department the symptoms are unchanged. Severity of symptoms: At their worst the symptoms were mild, moderate, in the emergency department the symptoms are unchanged. Historical: - Allergies: 15:40 Codeine; iw 15:40 PENICILLINS; iw 15:40 Sulfa (Sulfonamide Antibiotics); iw - PMHx: 15:40 Hyperlipidemia; Hypertension; iw - PSHx: 15:40 AVASCULAR NECROSIS HIP; section; RIGHT HIP FRACTURE; iw - Immunization history:: Adult Immunizations unknown. - Family history:: not pertinent. - Social history:: Smoking status: Patient denies any tobacco usage or history of. ROS: 16:58 Constitutional: Negative for fever, chills, and weight loss, Eyes: Negative for injury, ronel pain, redness, and discharge, ENT: Negative for injury, pain, and discharge, Neck: Negative for injury, pain, and swelling, Cardiovascular: Negative for chest pain, palpitations, and edema, Respiratory: Negative for shortness of breath, cough, wheezing, and pleuritic chest pain, Abdomen/GI: Negative for abdominal pain, nausea, vomiting, diarrhea, and constipation, Back: Negative for injury and pain, : Negative for injury, bleeding, discharge, and swelling, Skin: Negative for injury, rash, and discoloration, Neuro: Negative for headache, weakness, numbness, tingling, and seizure, Psych: Negative for depression, anxiety, suicide ideation, homicidal ideation, and hallucinations, Allergy/Immunology: Negative for hives, rash, and allergies, Endocrine: Negative for neck swelling, polydipsia, polyuria, polyphagia, and marked weight changes, Hematologic/Lymphatic: Negative for swollen nodes, abnormal bleeding, and unusual bruising. 16:58 : Positive for difficulty urinating. Exam: 16:58 Constitutional: This is a well developed, well nourished patient who is awake, alert, ronel and in no acute distress. Head/Face: Normocephalic, atraumatic. Eyes: Pupils equal round and reactive to light, extra-ocular motions intact. Lids and lashes normal. Conjunctiva and sclera are non-icteric and not injected. Cornea within normal limits. Periorbital areas with no swelling, redness, or edema. ENT: Nares patent. No nasal discharge, no septal abnormalities noted. Tympanic membranes are normal and external auditory canals are clear. Oropharynx with no redness, swelling, or masses, exudates, or evidence of obstruction, uvula midline. Mucous membranes moist. Neck: Trachea midline, no thyromegaly or masses palpated, and no cervical lymphadenopathy. Supple, full range of motion without nuchal rigidity, or vertebral point tenderness. No Meningismus. Chest/axilla: Normal chest wall appearance and motion. Nontender with no deformity. No lesions are appreciated. Cardiovascular: Regular rate and rhythm with a normal S1 and S2. No gallops, murmurs, or rubs. Normal PMI, no JVD. No pulse deficits. Respiratory: Lungs have equal breath sounds bilaterally, clear to auscultation and percussion. No rales, rhonchi or wheezes noted. No increased work of breathing, no retractions or nasal flaring. Abdomen/GI: Soft, non-tender, with normal bowel sounds. No distension or tympany. No guarding or rebound. No evidence of tenderness throughout. Back: No spinal tenderness. No costovertebral tenderness. Full range of motion. Female : Normal external genitalia. Neuro: Awake and alert, GCS 15, oriented to person, place, time, and situation. Cranial nerves II-XII grossly intact. Motor strength 5/5 in all extremities. Sensory grossly intact. Cerebellar exam normal. Normal gait. Psych: Awake, alert, with orientation to person, place and time. Behavior, mood, and affect are within normal limits. 16:58 Musculoskeletal/extremity: ROM: limited active range of motion, limited passive range of motion, in the left leg, Circulation is intact in all extremities. DVT Exam: negative Homans' sign noted on exam, no appreciated bluish discoloration, pain, swelling, tenderness, erythema, increased warmth, of the right leg, of the left leg. 16:58 Skin: cellulitis, that is mild, that is moderate, on the right leg and left leg. 16:58 Neuro: Orientation: is normal, Mentation: is normal, appropriate for stated age, no acute changes, Memory: is normal, appropriate for stated age, no acute changes, Cranial nerves: grossly normal, is grossly normal based on the patient's age, Cerebellar function: unable to test, Sensation: no obvious gross deficits, appropriate no acute changes, Gait: not tested. Deep tendon reflexes are 1 (trace) + in the bilateral brachioradialis, bicep, tricep and patellar and Achilles tendons, seizure activity, is not displayed by the patient. 17:06 ECG was reviewed by the Attending Physician. [facility] Vital Signs: 15:39 BP 138 / 87; Pulse 103; Resp 16; Pulse Ox 100% on R/A; iw 16:00 BP 132 / 82; Pulse 84; Resp 17; Pulse Ox 100% on R/A; kr3 17:00 BP 154 / 82; Pulse 76; Resp 18; Pulse Ox 98% on R/A; kr3 18:00 BP 147 / 83; Pulse 72; Resp 17; Pulse Ox 98% on R/A; kr3 19:00 BP 155 / 89; Pulse 75; Resp 17; Pulse Ox 100% on R/A; kr3 MDM: 14:16 Patient medically screened. [facility] 17:03 Differential diagnosis: contusion, abrasion, tendonitis. Differential Diagnosis sepsis. [facility] Data reviewed: vital signs, EMS record, old medical records, lab test result(s), EKG, radiologic studies, plain films. Consideration of Admission/Observation Patient was admitted/placed on observation. Escalation of care including admission/observation considered. I considered the following discharge prescriptions or medication management in the emergency department Medications were administered in the Emergency Department. See MAR. Independent interpretation of the following test(s) in the Emergency Department EKG: See my EKG interpretation above. Test considered but Not performed: MRI: NO MRI ABD DONE OR NEEDED. Care significantly affected by the following chronic conditions: Hypertension, AVN HIPS, HYPERLIPIDEMIA. 06/18 13:15 Order name: Basic Metabolic Panel; Complete Time: 16:06/18 13:15 Order name: CBC with Diff; Complete Time: 16:06/18 13:15 Order name: LFT's; Complete Time: 16:06/18 13:15 Order name: Magnesium; Complete Time: 16:06/18 13:15 Order name: NT PRO-BNP; Complete Time: 16:06/18 13:15 Order name: PT-INR; Complete Time: 16:06/18 13:15 Order name: Troponin HS; Complete Time: 16:06/18 13:15 Order name: Urinalysis (UA w/ reflexes); Complete Time: 16: ronel 06/18 13:15 Order name: Lipase; Complete Time: 16:06/18 16:57 Order name: Blood Culture Adult (2) 06/18 17:37 Order name: SARS RAPID; Complete Time: 19:34 06/18 20:20 Order name: Phosphorus; Complete Time: 20:36 EDMS 06/18 20:20 Order name: T4 Free; Complete Time: 20:36 EDMS 06/18 20:20 Order name: Magnesium; Complete Time: 20:36 EDMS 06/18 20:20 Order name: Thyroid Stimulating Hormone; Complete Time: 20:36 EDMA 06/18 13:15 Order name: XRAY Chest (1 view); Complete Time: 16:06/18 13:15 Order name: US Extremity Venous W Compression Jose L; Complete Time: 16:06/18 17:10 Order name: Pelvis XRAY; Complete Time: 19:34 06/18 13:15 Order name: EKG; Complete Time: 13:17 06/18 13:15 Order name: Cardiac monitoring; Complete Time: 16:36 06/18 13:15 Order name: EKG - Nurse/Tech; Complete Time: 15:55 06/18 13:15 Order name: IV Saline Lock; Complete Time: 15:55 [facility] 06/18 13:15 Order name: Labs collected and sent; Complete Time: 15:55 [facility] 06/18 13:15 Order name: O2 Per Protocol; Complete Time: 16:01 [facility] 06/18 13:15 Order name: O2 Sat Monitoring; Complete Time: 16:01 [facility] EC:06 Rate is 74 beats/min. Rhythm is regular. QRS [place] is Normal. MD interval is normal. QRS ronel interval is normal. QT interval is normal. No Q waves. T waves are Normal. No ST changes noted. Clinical impression: NSR w/ Non-specific ST/T Changes and No evidence of ischemia. Interpreted by me. Reviewed by me. Administered Medications: 17:12 Drug: Furosemide IVP 20 mg Route: IVP; Site: left antecubital; kr3 19:34 Follow up: Response: No adverse reaction kr3 18:51 Drug: ceFAZolin IVPB 1 grams Route: IVPB; Site: right antecubital; kr3 19:35 Follow up: Response: No adverse reaction; IV Status: Completed infusion; IV Intake: kr3 100ml Disposition Summary: 06/18/22 17:09 Hospitalization Ordered Hospitalization Status: Inpatient Admission ronel Provider: Noemi Prasad cha Location: Telemetry/MedSurg (Inpatient) ronel Condition: Fair ronel Problem: new ronel Symptoms: have improved ronel Bed/Room Type: Standard [facility] Room Assignment: 407(06/18/22 20:15) cg Diagnosis - Cellulitis and acute lymphangitis of other parts of limb - BILATERAL LOWER ronel EXTREMITIES - Edema, unspecified ronel - Weakness ronel Forms: - Medication Reconciliation Form ronel - SBAR form ronel Signatures: Dispatcher [employer] Gus Cool MD MD cha Williams, Irene, RN RN iw Garcia, Cindy, RN RN cg Reid, Kelley, RN RN juani3 Yusra Nj PA-C PA-C sb4 Corrections: (The following items were deleted from the chart) 20:15 17:09 ronel cg
--- NOTE | 2022-06-18 17:40 | RAD REPORT ---
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 Hardware is present proximal right femu r. Bowel gas pattern is nonobstructive.
[2022-06-18] MEDS ORDERED: CEFAZOLIN SODIUM 1 GM/VIAL ONE (18:41)
[2022-06-18] MEDS ORDERED: NA CHLORIDE 0.9% 100 ML ONE (18:41)
[2022-06-18] MEDS ORDERED: ACETAMINOPHEN 325 MG TABLET PO PRN (19:04)
[2022-06-18] MEDS ORDERED: HYDROCODONE/APAP 5/325 MG TAB PO PRN (19:04)
[2022-06-18] MEDS ORDERED: ONDANSETRON 4 MG/2 ML VIAL IV PRN (19:06)
--- NOTE | 2022-06-18 19:10 | P.HP ---
Certification for Inpatient Patient admitted to: Inpatient With expected LOS: >2 Midnights Patient will require the following post-hospital care: None Practitioner: I am a practitioner with admitting privileges, knowledge of patient current condition, hospital course, and medical plan of care. Services: Services provided to patient in accordance with Admission requirements found in Title 42 Section 412.3 of the Code of Federal Regulations Patient History Date of Service: 06/18/22 Reason for admission: Bilateral lower extremity swelling\redness\pain History of Present Illness: Patient is a 81-year-old female with a past medical history significant for hyperlipidemia, hypertension, bilateral avascular necrosis who presents with complaint of bilateral lower extremity edema\redness\pain. Patient is a poor historian and unable to provide accurate history. Family reported that patient has been have intermittent bilateral lower extremity edema and was placed on Lasix. Family reported that patient has not been compliant with her Lasix medication. Patient rated pain as 6/10 in severity and described pain as aching in quality. Patient reported associated signs and symptoms of chills and generalized weakness.. Patient denies any other signs and symptoms. Symptoms are aggravated or relieved by nothing. Patient followed up with her PCP today and was instructed to come to the ER for further evaluation. Allergies codeine Adverse Reaction (Verified 09/23/13 11:43) Nausea/Vomiting Penicillins Adverse Reaction (Verified 09/23/13 11:43) Hives/Rash Sulfa (Sulfonamide Antibiotics) Adverse Reaction (Verified 09/23/13 11:43) Nausea/Vomiting Home Medications: Ramipril [Altace] 10 mg PO DAILY 09/16/13 Ubidecarenone [Co Q-10] 60 mg PO BID 09/16/13 Ascorbic Acid [Vitamin C] 300 mg PO DAILY 09/24/13 Calcium Carb, Citrate/Vit D3 [Citracal-D3 ER 600 mg-500 Unit] 1 tab PO DAILY 09/24/13 Cholecalciferol (Vitamin D3) [Vitamin D3] 2,500 iu PO DAILY 09/24/13 Rivaroxaban [Xarelto*] 10 mg PO BID #60 tablet 10/04/13 Tramadol HCl/Acetaminophen [Ultracet Tablet] 1 each PO Q6HP PRN #30 tablet 10/05/13 - Past Medical/Surgical History Diabetic: No -: ANEMIA -: OA -: HTN -: APPENDECTOMY -: TONSILLECTOMY -: COLON SX -: OVARY REMOVAL -: Tonsillectomy -: Right Ovary removal -: Colon Sx - Social History Smoking Status: Never smoker Alcohol use: No CD- Drugs: No Caffeine use: Yes Place of Residence: Home Review of Systems General: Chills, Weakness Eyes: Unremarkable ENT: Unremarkable Respiratory: Unremarkable Cardiovascular: Unremarkable Gastrointestinal: Unremarkable Genitourinary: Unremarkable Musculoskeletal: Leg Pain, Pedal edema Integumentary: Other (BLE redness ) Neurological: Weakness Lymphatics: Unremarkable Physical Examination - Physical Exam General: Alert, In no apparent distress, Oriented x3, Cooperative HEENT: Atraumatic, PERRLA, Mucous membr. moist/pink, EOMI, Sclerae nonicteric Neck: Supple, 2+ carotid pulse no bruit, No LAD, Without JVD or thyroid abnormality Respiratory: Clear to auscultation bilaterally, Normal air movement Cardiovascular: Regular rate/rhythm, Normal S1 S2, Edema Capillary refill: <2 Seconds Gastrointestinal: Normal bowel sounds, Soft and benign, No tenderness Musculoskeletal: Swelling, Erythema, Tenderness Integumentary: No rashes, Tenderness/swelling, Erythema Neurological: Normal speech, Normal tone, Normal affect Lymphatics: No axilla or inguinal lymphadenopathy - Studies Laboratory Data (last 24 hrs) 06/18/22 14:45: PT 12.3, INR 1.12 06/18/22 14:45: WBC 6.40, Hgb 12.9, Hct 38.6, Plt Count 135 L 06/18/22 14:45: Sodium 134 L, Potassium 3.8, BUN 23 H, Creatinine 0.56, Glucose 95, Magnesium 2.1, Total Bilirubin 1.2 H, AST 12 L, ALT 14, Alkaline Phosphatase 67, Lipase 46 Assessment and Plan - Plan --Bilateral lower extremity cellulitis. Blood cultures pending. Patient placed on antibiotics. Continue supportive care. --Bilateral lower extremity edema. Doppler ultrasound indicates No sonographic evidence of left or right lower extremity deep venous thrombosis. Echocardiogram pending to assess cardiac structures and function. Patient placed on Lasix. Continue supportive care. --Acute pain\history of bilateral avascular necrosis\OA. We will manage pain with current pain medication regimen. --Hyperlipidemia. Continue home medication --Hypertension. Poorly controlled. Continue home medications and labetalol as needed. -- DVT prophylaxis with Lovenox subQ. Discharge Plan: Home Plan to discharge in: Greater than 2 days - Advance Directives Does patient have a Living Will: No Does patient have a Durable POA for Healthcare: No - Code Status/Comfort Care Code Status Assessed: Yes Physician Review: Patient Assessed, Agree with Above Assessment and Plan Critical Care: No
[2022-06-18 19:12] LABS: SARS-CoV-2 Antigen Rapid Res Negative (Negative)
[2022-06-18 20:19] LABS: Magnesium 2.2; Phosphorus 3.5 mg/dL (2.5-4.9)
[2022-06-18 20:20] LABS: Thyroid Stimulating Hormone 2.75 uIU/mL (0.358-3.740)
[2022-06-18] MEDS ORDERED: LABETALOL 20 MG/4ML SYRINGE IV PRN (21:05)
[2022-06-18] MEDS: ENOXAPARIN 40 MG/0.4 ML SQ SCH (21:49)
[2022-06-19] MEDS: CEFAZOLIN 1 GM in NA CHLORIDE 0.9% 50 ML IVPB SCH ×3 (00:22→17:08)
[2022-06-19 01:18] VITALS: BMI 21.9
[2022-06-19 06:00] LABS: Absolute Lymphocytes (CBC) 1.4 K/uL (0.7-4.9); Hematocrit 34.6 % (36.0-45.0); Lymphocytes % 24.8 % (15.3-44.8); MCV 89.9 fL (80-100); MPV 7.5 fL (7.6-11.3); RBC Red Blood Cell Count 3.85 M/uL (3.86-4.86)
[2022-06-19] MEDS ORDERED: ALBUMIN HUMAN 25% 12.5 GM, FUROSEMIDE 100 MG in NA CHLORIDE 0.9% 40 ML IV SCH ×2 (06:00→11:00)
[2022-06-19 06:13] LABS: Potassium 3.5 mEq/L (3.5-5.1)
[2022-06-19] MEDS ORDERED: PNEUMOCOCCAL VACCINE 0.5 ML IMVAC ONE (08:00)
[2022-06-19] MEDS ORDERED: POTASSIUM 25 MEQ EFFERV TAB PO ONE (09:00)
[2022-06-19] MEDS: ENOXAPARIN 40 MG/0.4 ML SQ SCH (09:29)
[2022-06-19] MEDS: ASPIRIN 81 MG CHEWABLE TABLET PO SCH (09:30)
[2022-06-19] MEDS: FUROSEMIDE 40 MG/4 ML VIAL IV SCH ×2 (09:30→17:00)
[2022-06-19] MEDS ORDERED: METHYLPREDNISOLONE 40 MG INJ IV ONE (16:13)
--- NOTE | 2022-06-19 17:24 | EKG ---
Test Date: 2022-06-18 Test Time: 14:35:37 Sales And Marketing Engineer: [employer] MEASUREMENT RESULTS: Intervals: Rate: 162 MO: QRSD: 42 QT: 250 QTc: 410 Hope: P: MO: QRS: 208 T: 201 INTERPRETIVE STATEMENTS: Normal sinus rhythm with artifact Low voltage QRS Inferior infarct, age undetermined Anterolateral infarct, age undetermined Abnormal ECG Compared to ECG 06/04/2021 17:54:50 Low QRS voltage now present Myocardial infarct finding now present Electronically Signed On 06-19-22 17:21:35 CDT by Ezekiel Branch
[2022-06-19] MEDS ORDERED: KCL 20 MEQ/100 mL IVPB 20 MEQ/100 ML BAG IV SCH (23:45)
[2022-06-19 23:47] LABS: Specific Gravity 1.011 (1.005-1.030); Urine Bacteria None Seen /HPF (<20); Urine Bilirubin NEGATIVE (Negative); Urine Blood Negative (Negative); Urine Clarity Clear (Clear); Urine Color Colorless (Yellow); Urine Glucose NEGATIVE (Negative); Urine Protein NEGATIVE (Negative); Urine RBC <5 /HPF (None Seen); Urine Urobilinogen Normal (Normal)
[2022-06-20] MEDS ORDERED: NA CHLORIDE 0.9% 250 ML ONE (00:11)
--- NOTE | 2022-06-20 00:11 | P.PN ---
Subjective Date of Service: 06/19/22 she patient is a 81-year-old female who was admitted to hospital with swelling of the lower extremity and erythema of the lower extremity. Patient has a history of lymphedema. She did have some erythema which was felt to be cellulitis. She was on antibiotics and on diuretics. Gently diurese. Family i s wanting sniff placement. At this time patient is clinically doing well and anticipate discharge either to home with home health or intermediate facility. Family is deciding on with her is her best option. Review of Systems 10-point ROS is otherwise unremarkable Physical Examination - Vital Signs Temperature: 98.1 F Blood Pressure: 126/73 Pulse: 76 Respirations: 19 Pulse Ox (%): 94 - Physical Exam General: Alert, In no apparent distress, Oriented x3 Respiratory: Clear to auscultation bilaterally, Normal air movement Cardiovascular: Regular rate/rhythm, Normal S1 S2, No murmurs Gastrointestinal: Normal bowel sounds, Soft and benign, Non-distended, No tenderness Musculoskeletal: Swelling Integumentary: No rashes Neurological: Normal speech, Normal tone, Normal affect Lymphatics: No axilla or inguinal lymphadenopathy - Studies Medications List Reviewed: Yes Assessment & Plan - Problems (Diagnosis) (1) Lymphedema Current Visit: Yes Status: Acute (2) Cellulitis of left lower extremity Current Visit: Yes Status: Acute (3) Hypertension Current Visit: No Status: Acute - Plan 1. Continue with IV antibiotic 2. Continue with local wound care 3. Wound care consultation/surgical consultation 4. Gentle IV hydration 5. Monitor CBC 6. Strict blood sugar monitoring 7. Pain control 8. GI and DVT prophylaxis Discharge Plan: Home Plan to discharge in: Greater than 2 days - Advance Directives Does patient have a Living Will: No Does patient have a Durable POA for Healthcare: No - Code Status/Comfort Care Code Status Assessed: Yes Code Status: Full Code Physician Review: Patient Assessed, Agree with Above Assessment and Plan Critical Care: No Time Spent Managing PTS Care (In Minutes): 35
[2022-06-20] MEDS: CEFAZOLIN 1 GM in NA CHLORIDE 0.9% 50 ML IVPB SCH ×3 (00:12→17:27)
[2022-06-20 03:41] LABS: Absolute Lymphocytes (CBC) 0.6 K/uL (0.7-4.9); Hematocrit 39.9 % (36.0-45.0); Lymphocytes % 11.3 % (15.3-44.8); MCV 89.1 fL (80-100); MPV 7.5 fL (7.6-11.3); RBC Red Blood Cell Count 4.48 M/uL (3.86-4.86)
[2022-06-20 04:02] LABS: Potassium 3.7 mEq/L (3.5-5.1)
--- NOTE | 2022-06-20 06:58 | ECHO ---
HEIGHT: 5 ft 4 in WEIGHT: 128 lb 0 oz DATE OF STUDY: 06/19/[address]: Marie Gaona 2-DIMENSIONAL: YES M.MODE: YES DOPPLER: YES COLOR FLOW: YES TDS: PORTABLE: YES DEFINITY: BUBBLE STUDY: DIAGNOSIS: BILATERAL LEFT EXTREMITY EDEMA CARDIAC HISTORY: CATHERIZATION: NO SURGERY: NO PROSTHETIC VALVE: NO PACEMAKER: NO MEASUREMENTS (cm) DIASTOLIC (NORMALS) SYSTOLIC (NORMALS) IVSd 1.0 (0.6-1.2) LA Diam 2.1 (1.9-4.0) LVEF 60-65% LVIDd 3.3 (3.5-5.7) LVIDs 2.3 (2.0-3.5) %FS 30% LVPWd 1.1 (0.6-1.2) Ao Diam 2.7 (2.0-3.7) 2 DIMENSIONAL ASSESSMENT: RIGHT ATRIUM: NORMAL LEFT ATRIUM: NORMAL RIGHT VENTRICLE: NORMAL LEFT VENTRICLE: NORMAL TRICUSPID VALVE: MILD TRICUSPID REGURGITATION MITRAL VALVE: MILD MITRAL REGURGITATION PULMONIC VALVE: NORMAL AORTIC VALVE: MILD AORTIC INSUFFICIENCY PERICARDIAL EFFUSION: NONE AORTIC ROOT: NORMAL LEFT VENTRICULAR WALL MOTION: NORMAL DOPPLER/COLOR FLOW: SEE BELOW COMMENTS: 1. NORMAL LEFT VENTRICULAR EJECTION FRACTION GREATER THAN 60% 2. NORMAL WALL MOTION 3. GRADE I DIASTOLIC DYSFUNCTION 4. MILD MITRAL REGURGITATION, TRICUSPID REGURGITATION, AORTIC INSUFFICIENCY 5. SEVERELY DILATED INFERIOR VENA CAVA AT 2.8 CENTIMETERS. TECHNOLOGIST: NINA CAMPOS
[2022-06-20] MEDS ORDERED: ALBUMIN HUMAN 25% 12.5 GM, FUROSEMIDE 100 MG in NA CHLORIDE 0.9% 40 ML IV SCH (08:00)
[2022-06-20] MEDS ORDERED: POTASSIUM CL SA 10 MEQ TAB PO ONE (09:00)
[2022-06-20] MEDS: ASCORBIC ACID 500 MG TABLET PO SCH (09:00)
[2022-06-20] MEDS: VITAMIN D 1000 UNIT TAB PO SCH (09:04)
[2022-06-20] MEDS: CALCIUM CARBONATE CHEW 500MG TAB PO SCH (09:04)
[2022-06-20] MEDS: ASPIRIN 81 MG CHEWABLE TABLET PO SCH (09:06)
[2022-06-20] MEDS: ENOXAPARIN 40 MG/0.4 ML SQ SCH (09:07)
[2022-06-20] MEDS ORDERED: HALOPERIDOL LACT 5 MG/ML INJ IV PRN (22:01)
[2022-06-20 23:15] VITALS: O2SAT 97
[2022-06-21 07:25] LABS: Potassium 3.4 mEq/L (3.5-5.1)
[2022-06-21] MEDS ORDERED: POTASSIUM CL SA 10 MEQ TAB PO ONE (07:59)
[2022-06-21] MEDS: CEFAZOLIN 1 GM in NA CHLORIDE 0.9% 50 ML IVPB SCH ×3 (08:38)
[2022-06-21] MEDS: ASCORBIC ACID 500 MG TABLET PO SCH (08:39)
[2022-06-21] MEDS: ENOXAPARIN 40 MG/0.4 ML SQ SCH (08:39)
[2022-06-21] MEDS: CALCIUM CARBONATE CHEW 500MG TAB PO SCH (08:39)
[2022-06-21] MEDS: ASPIRIN 81 MG CHEWABLE TABLET PO SCH (08:40)
[2022-06-21] MEDS: VITAMIN D 1000 UNIT TAB PO SCH (09:31)
[2022-06-21 16:24] VITALS: BP 166/78; TEMP 97.3
== END 2022-06-21 17:45 | DRG 603 ==
LOC: ER 13:07 → ERHOLD 19:03 → 4TH 20:31
PROVIDERS: ADMIT Hospitalist; ATTEND Hospitalist
DX: L03.116 Cellulitis of left lower limb (principal); L03.115 Cellulitis of right lower limb; E78.5 Hyperlipidemia, unspecified; I89.0 Lymphedema, not elsewhere classified; I10 Essential (primary) hypertension; Z88.5 Allergy status to narcotic agent; Z88.0 Allergy status to penicillin; Z88.1 Allergy status to other antibiotic agents; Z79.01 Long term (current) use of anticoagulants; Z90.49 Acquired absence of other specified parts of digestive tract; Z79.899 Other long term (current) drug therapy; Z20.822 Contact with and (suspected) exposure to COVID-19
CPT/HCPCS: 36415; 71045; 72170; 80048; 80076; 81001; 83690; 83735; 83880; 84100; 84132; 84439; 84443; 84484; 85025; 85610; 87040; 87811; 93005; 93306; 93970; 96365; 96375; 97110; 97116; 97161; 97530; 99285; J0690; J1630; J1650; J1940; J2920; J3480; J7050; P9047; U0003